=== PATIENT | male | born 1995 | race Caucasian/White ===

== ENCOUNTER 2020-01-27 10:11 | Day surgery (SDC) | payer OTHER, SELFPAY ==
[~2020-01-27] VITALS: Ht 160 cm; Wt 52.2 kg
[2020-01-27] MEDS ORDERED: fentaNYL citrate 0.05 MG/ML VIAL ONE (13:02)
[2020-01-27] MEDS ORDERED: LIDOCAINE 2% 100 MG/5 ML UJET TP ONE (13:03)
[2020-01-27] MEDS ORDERED: MIDAZOLAM 2 MG/2 ML VIAL ONE (13:03)
[2020-01-27] MEDS ORDERED: fentaNYL citrate 0.05 MG/ML VIAL IVP ONE (13:30)
[2020-01-27] MEDS ORDERED: MIDAZOLAM 2 MG/2 ML VIAL IVP ONE (13:30)
== END 2020-01-27 14:05 | disposition home or self-care (01) ==
LOC: MDS 10:11 → MFCC 11:54 → MDS 14:05
PROVIDERS: ATTEND Internal Medicine Gastroenterology
DX: K62.5 Hemorrhage of anus and rectum (principal); J45.909 Unspecified asthma, uncomplicated; M41.9 Scoliosis, unspecified; Z88.0 Allergy status to penicillin; Z79.899 Other long term (current) drug therapy; Z11.59 Encounter for screening for other viral diseases
CPT/HCPCS: 45378; J2250; J3010; U0003